=== PATIENT | female | born 1940 | race Caucasian/White ===

== ENCOUNTER 2024-02-03 11:45 | Inpatient (IN) | payer MEDICARE, OTHER, SELFPAY ==
[2024-02-01] VITALS (7 sets, daily range): BP systolic 111–148; BP diastolic 56–99
[2024-02-01 21:42] LABS: % Basophils 0.6 % (0-2); % Eosinophils 1.9 % (0-6); % Immature Granulocytes 0.6 % (0-0.5); % Lymphocytes 33.9 % (20.5-51.1); % Monocytes 7.7 % (1.7-9.3); % Neutrophils 55.3 % (42.2-75.2); Absolute Basophils 0.1 10^3/uL (0-0.2); Absolute Eosinophils 0.2 10^3/uL (0-0.7); Absolute Immature Granulocytes 0.1 10^3/uL (0-0.05); Absolute Lymphocytes 3.7 10^3/uL (1.2-3.4); Absolute Monocytes 0.8 10^3/uL (0.1-0.6); Absolute Neutrophils 5.9 10^3/uL (1.4-6.5); Hematocrit 39.5 % (37.0-47.0); Hemoglobin 13.6 g/dL (12.0-16.0); Mean Corp Hgb Conc. 34.4 g/dL (33.0-37.0); Mean Corpuscular Hgb 30.3 pg (27.0-31.0); Mean Platelet Volume 9.7 fL (7.4-10.4); Nucleated Red Blood Cells % 0 %; Platelet Count 292 10^3/uL (130-400); Red Blood Cell Count 4.49 10^6/uL (4.20-5.40); Red Cell Dist. Width 13.9 % (11.5-14.5); White Blood Cell Count 10.8 10^3/uL (4.8-10.8)
--- NOTE | 2024-02-01 21:59 | ED.GENMED ---
History of Present Illness
<LO Cevallos - Last Filed: 02/02/24 02:05>
General
Chief Complaint: Heart Rate Problem
Source: patient and family (Son, daughter in law)
Exam Limitations: none
Time Seen by Provider: 02/01/24 21:57
Nursing documentation reviewed up to this point in time: agreed with except (ASA allergy)
History of Present Illness
History of Present Illness:
Pt is an 84 y/o F with a pmhx of controlled HTN and HLD x50 years who presents today with complaints of abdominal burning that radiated into her chest x2 hrs. The patient stated that at 8:30pm today she got up to go to the bathroom when she started
to feel that burning in her abdomen and chest tightness. She had associated palpitations, fatigue, weakness, and dizziness. The patient reports a history if FERREIRA all of the time but denied an increase in SOB at the time. The patient reported that she
called her son and daughter in law who transported her to the ED and continued to have complaints of chest tightness for 10 minutes. Upon interview, the patient reported that her chest tightness and abdominal burning have improved. She has continued
complaints of palpitations and new onset headache.
The patient has a pmhx of HTN and HLD x40-50 years which are controlled on medication. She is unable to recall the names of her medication but she sees her PCP on a regular basis for management. The patient also has a pmhx of lung cancer and has
been in remission since 1996. The patient denies history of CHF, stroke/TIA, PVD, and DM. The patient's chart mentions an allergy of aspirin. The patient noted GERD like symptoms when she takes uncoated ASA on an empty stomach. Otherwise, the
patient takes ASA 80mg every night. The patient stated that she does not miss a dose and her last dose was last night. She also has an allergy to an ingredient in cough syrup but is unable to recall the specific ingredient. The patient is a former
smoker since 1986 and is an occasional drinker.
Past History
<LO Cevallos - Last Filed: 02/02/24 02:05>
Past History
ED Past Medical History: HTN, Hypercholesterolemia and Other (Lung cancer)
ED Past Surgical History: Gynecological (Hysterectomy)
Social History
Tobacco: Former smoker (Quit in 1986)
Alcohol: Occasional
Drug: None
Review of Systems
<LO Cevallos - Last Filed: 02/02/24 02:05>
Review of Systems
Allergies reviewed?: Yes
Constitutional: Reports fatigue
EENT: Reports no symptoms
Respiratory: Reports no symptoms
Cardiac: Reports chest pain and palpitations
ABD/GI: Reports no symptoms
: Reports no symptoms
Musculoskeletal: Reports no symptoms
Skin: Reports no symptoms
Neurological: Reports headache and weakness
Endocrine: Reports no symptoms
Hematologic/Lymphatic: Reports no symptoms
Psychiatric: Reports no symptoms
Phy Exam
<LO Cevallos - Last Filed: 02/02/24 02:05>
General Physical Exam
General Presentation: well appearing and mild distress
General age: appears stated age
General Skin: warm and dry
General Habitus: normal
General Mental: alert
General Hydration: appears well hydrated
ENT Exam
ENT Exam: neck supple
Cardiovascular Exam
Cardiovascular Exam: normal peripheral pulses, irregularly irregular, no carotid bruit and tachycardia
Pulmonary Exam
Pulmonary Exam: no respiratory distress
Gastrointestinal Exam
Gastrointestinal Exam: normal bowel sounds, non tender, soft, no pulsatile mass, non distended and no bruit
Neurological Exam
Neurological Exam: alert, oriented x3, no motor deficits, no sensory deficits and speech normal
Scores
<LO Cevallos - Last Filed: 02/02/24 02:05>
[id number] Score for Afib Stroke Risk
Age in Years (65=0, 65-74=1, >/=75=2): > or = 75
Sex (Female=+1): Female
Congestive Heart Failure History (Yes=+1): No
Hypertension History (Yes=+1): Yes
Stroke/TIA/Thromboembolism History (Yes=+2): No
Vascular Disease History (Yes=+1): No
Diabetes Mellitus (Yes=+1): No
Score: 4
Anticoagulation Recommendations: Recommend anticoagulation (as validated in nonvalvular fib)
<Yuri Hugo DO - Last Filed: 02/02/24 03:47>
[id number] Score for Afib Stroke Risk
Score: 4
Anticoagulation Recommendations: Recommend anticoagulation (as validated in nonvalvular fib)
Course
<ST BanPA - Last Filed: 02/02/24 02:05>
Orders/Labs/Results
Orders:
Orders
02/01/24 21:08
Electrocardiogram (*1) Urgent
Reason for Study: Tachycardia
EKG- Treatment ONCE
02/01/24 21:37
Basic Metabolic Panel Urgent
Complete Blood Count/With Diff Urgent
02/01/24 22:33
Prothrombin Time Urgent
Troponin I Urgent
02/01/24 22:48
Diltiazem HCl [Cardizem] 20 mg IV NOW STA
02/01/24 22:59
0.9% Sodium Chloride 500 ml [Nss] 500 ml IV BOLUS
02/01/24 23:00
0.9% Sodium Chloride 500 ml [Nss] 500 ml IV 250 mls/hr
Diltiazem 125 mg/125 ml Nss [Cardizem] 125 mg in 125 ml IV PER PROTOCOL
Initial dose in mg/hr, then titrate:: 5
Titrate to keep:: Heart rate 80-100 bpm
Titrate by mg/hr:: 5 mg/hr
Frequency of titrations (minutes):: 15
Maximum dose in mg/hr:: 15
02/02/24 02:00
Propofol [Diprivan] 20 ml .ROUTE .STK-MED
02/02/24 02:06
Troponin I Urgent
02/02/24 02:35
Electrocardiogram (*1) Urgent
Reason for Study: Palpitations
EKG- Treatment ONCE
02/02/24 02:36
Apixaban [Eliquis] 5 mg PO NOW STA
Abnormal Lab Results
02/01/24 02/01/24 02/02/24
21:37 22:33 02:06
Abs Immat Gran (auto) 0.1 H 10^3/uL
(0-0.05)
Absolute Lymphs (auto) 3.7 H 10^3/uL
(1.2-3.4)
Absolute Monos (auto) 0.8 H 10^3/uL
(0.1-0.6)
Immature Gran % 0.6 H %
(0-0.5)
Carbon Dioxide 20 L mmol/L
(22-30)
BUN 21 H mg/dl
(7-17)
Glucose 153 H mg/dl
(70-99)
Troponin I 0.057 H* ng/ml 0.062 H* ng/ml
02/01/24 21:37
02/01/24 21:37
Vital Signs
Initial and Last Documented VS:
Initial Vital Signs
Temp Pulse Resp BP Pulse Ox
97.7 F 146 18 148/95 98
02/01/24 21:04 02/01/24 21:04 02/01/24 21:04 02/01/24 21:04 02/01/24 21:04
Last Documented Vital Signs
Temp Pulse Resp BP Pulse Ox
97.7 F 55 18 125/66 97
02/01/24 21:04 02/02/24 03:15 02/02/24 03:15 02/02/24 03:15 02/02/24 03:15
<Yuri Hugo, DO - Last Filed: 02/02/24 03:47>
Orders/Labs/Results
Orders:
Orders
02/01/24 21:08
Electrocardiogram (*1) Urgent
Reason for Study: Tachycardia
EKG- Treatment ONCE
02/01/24 21:37
Basic Metabolic Panel Urgent
Complete Blood Count/With Diff Urgent
02/01/24 22:33
Prothrombin Time Urgent
Troponin I Urgent
02/01/24 22:48
Diltiazem HCl [Cardizem] 20 mg IV NOW STA
02/01/24 22:59
0.9% Sodium Chloride 500 ml [Nss] 500 ml IV BOLUS
02/01/24 23:00
0.9% Sodium Chloride 500 ml [Nss] 500 ml IV 250 mls/hr
Diltiazem 125 mg/125 ml Nss [Cardizem] 125 mg in 125 ml IV PER PROTOCOL
Initial dose in mg/hr, then titrate:: 5
Titrate to keep:: Heart rate 80-100 bpm
Titrate by mg/hr:: 5 mg/hr
Frequency of titrations (minutes):: 15
Maximum dose in mg/hr:: 15
02/02/24 02:00
Propofol [Diprivan] 20 ml .ROUTE .STK-MED
02/02/24 02:06
Troponin I Urgent
02/02/24 02:35
Electrocardiogram (*1) Urgent
Reason for Study: Palpitations
EKG- Treatment ONCE
02/02/24 02:36
Apixaban [Eliquis] 5 mg PO NOW STA
Abnormal Lab Results
02/01/24 02/01/24 02/02/24
21:37 22:33 02:06
Abs Immat Gran (auto) 0.1 H 10^3/uL
(0-0.05)
Absolute Lymphs (auto) 3.7 H 10^3/uL
(1.2-3.4)
Absolute Monos (auto) 0.8 H 10^3/uL
(0.1-0.6)
Immature Gran % 0.6 H %
(0-0.5)
Carbon Dioxide 20 L mmol/L
(22-30)
BUN 21 H mg/dl
(7-17)
Glucose 153 H mg/dl
(70-99)
Troponin I 0.057 H* ng/ml 0.062 H* ng/ml
02/01/24 21:37
02/01/24 21:37
Vital Signs
Initial and Last Documented VS:
Initial Vital Signs
Temp Pulse Resp BP Pulse Ox
97.7 F 146 18 148/95 98
02/01/24 21:04 02/01/24 21:04 02/01/24 21:04 02/01/24 21:04 02/01/24 21:04
Last Documented Vital Signs
Temp Pulse Resp BP Pulse Ox
97.7 F 55 18 125/66 97
02/01/24 21:04 02/02/24 03:15 02/02/24 03:15 02/02/24 03:15 02/02/24 03:15
Procedures
<Yuri Hugo, DO - Last Filed: 02/02/24 03:47>
Cardioversion
Indication:: Afib
Performed by:: Myself
Synchronized?: Yes
Energy Used: 200 joules
Number of attempts: 1
Successful?: Yes
ASA Risk Score: Class II
Any reaction or bad outcome to prior sedation/anesthesia?: No history of a reaction
Sedation level to be attained: moderate
Chart and allergies reviewed: Yes
Patient reassessed prior to sedation: Yes
Time out completed at (validating right patient & procedure): 02:24
History of difficult intubation: No
Airway free of obstruction: Yes
Patient has a gag reflex: Yes
Patient is able to open mouth: Yes
Patient has no dentures: Yes
Patient has no loose teeth: Yes
Medication administered by Provider during Moderate Sedation: IV Propofol (mg)
Total dose administered: 50
Time drug administered: 02:25
Start Time: 02:24
Stop Time: 02:40
<LO Cevallos - Last Filed: 02/02/24 02:05>
MDM/Problems Addressed
Differential Diagnosis Includes:
Afib
<LO Cevallos - Last Filed: 02/02/24 02:05>
*Critical Care Note
Total Time (30-74mins, 75-104mins- exclusive of procedures): Not Applicable
<LO Cevallos - Last Filed: 02/02/24 02:05>
Update Note
Update Note:
23:45 Pt was given IVF and Cardizem 20 mg bolus IV. The patient stated that she has been feeling better since presentation to the ED and is calmer. She reported that her abdominal burning and chest tightness has resolved. The HR monitor still
indicates Afib and the patient is still tachycardic but her HR has improved overall.
00:35 Pt is still doing well. HR is under 100 bpm but the monitor still indicates afib.
02:00 Pt is still in afib despite attempting rate control with Cardizem. She is agreeable to synchronized cardioversion.
ED Attending Note
<LO Cevallos - Last Filed: 02/02/24 02:05>
-
Portions of this chart may have been created with voice recognition software.� Occasional wrong word or��sound alike� substitutions may have occurred due to the inherent limitations of voice recognition software.
<Yuri Hugo, DO - Last Filed: 02/02/24 03:47>
ED Attending Note
Patient seen and examined by attending physician: Yes
I performed the substantive portion of visit, reviewed & personally made and approve the management plan that is documented in note by myself or SELAM.: Yes
ED Attending Note:
84-year-old female presents with palpitations. She states approximately 8:30 PM she had some abdominal bloating and palpitations. Patient states that she does have dyspnea on exertion but states that that has been stable and not increased today.
Patient reports that she had a similar instance of palpitation in the past that was self-limited. Patient denies fever, chills, nausea or vomiting. Patient was seen in conjunction with the PA student. I have reviewed and agree with the history
and treatment plan presented. On my independent physical exam, patient is awake, alert, and oriented x3. Heart is irregularly irregular. On the monitor heart rate appears to be normalizing.
Vital signs are stable. Patient not hypoxic
Nursing note reviewed. I agree with nursing documentation up to this point in time.
Home Meds and allergies reviewed.
NUMBER AND COMPLEXITY OF PROBLEMS ADDRESSED AT THE ENCOUNTER
� Chronic conditions affecting care:HTN, HLD
� Acute Exacerbation and/or Progression of Chronic Illness:None
� Differential Diagnosis includes:Afib, Aflutter
AMOUNT AND/OR COMPLEXITY OF DATA TO BE REVIEWED AND ANALYZED
I performed an independent evaluation of the following and my interpretation is:
EKG: EKG shows atrial fibrillation with rapid ventricular response rate of 139. There is a right bundle branch block present.
CT:
X-rays:
Ultrasound:
Laboratory Studies: Troponin 0.057.
Other:
Review of other/old records:
Clinical information was obtained by an independent historian:
Prescriptions/Medications Considered but not given:
Further testing considered but not performed:
RISK OF COMPLICATIONS AND/OR MORBIDITY OR MORTALITY OF PATIENT MANAGEMENT
Social determinants of health affecting care: Good Social Support
Discussion with other providers:
Escalation of care including admission/observation vs risk of discharge considered:
CRITICAL CARE NOTE:
Total Time (exclusive of procedures):
Update:02/02/2024 0157 AM: Patient still in atrial fibrillation with rapid ventricular response. She did agree for synchronized cardioversion with propofol sedation. Consent signed by patient and son. She has no further questions.
Discharge Plan
Departure
Patient Disposition: Admit
Date of Disposition: 02/02/24
Time of Disposition: 03:46
Admit to: Telemetry
Presentation/result/management discussed w/ accepting MD/DO: Hospitalist
Condition: Fair
Discharge Problem:
Atrial fibrillation with controlled ventricular response
Instructions: Atrial Fibrillation (DC), Palpitations (DC)
Prescriptions:
New
Eliquis 5 mg tablet
5 mg PO BID Qty: 30 0RF
No Action
losartan 50 mg Tablet
50 mg PO DAILY
atorvastatin 80 mg Tablet
80 mg PO HS
cyanocobalamin (vitamin B-12) 1,000 mcg Tablet
1,000 mcg PO DAILY
potassium chloride 10 mEq Tablet Extended Release
10 meq PO BID
acetaminophen [Tylenol Extra Strength] 500 mg Tablet
500 mg PO Q6HPRN PRN (Reason: mild pain)
amlodipine 10 mg Tablet
10 mg PO DAILY
hydrochlorothiazide 12.5 mg Capsule
12.5 mg PO DAILY
aspirin 81 mg Tablet,Chewable
81 mg PO HS
Hair,Skin and Nails Tablet
1 tab PO DAILY
fluoxetine 20 mg Capsule
20 mg PO DAILY
biotin 5 mg Tablet
5 mg PO DAILY
Centrum Silver Women 8 mg iron-400 mcg-50 mcg Tablet
1 tab PO DAILY
Referrals:
Gisela Mcfadden MD [Family Provider] -
Interventions
Interventions:
*Risk Screen - Suicide Last Done: 02/01/24 21:04
*General Assessment Last Done: 02/01/24 21:04
*Neglect/Abuse Screening Last Done: 02/01/24 21:04
ED- Cardiac Assessment Last Done: 02/01/24 21:39
ED- Pulmonary Assessment Last Done: 02/01/24 21:39
Discharge Date and Time
Print Language: KYRGYZ
[2024-02-01 22:03] LABS: Blood Urea Nitrogen 21 mg/dl (7-17); Calcium 9.7 mg/dl (8.4-10.2); Carbon Dioxide 20 mmol/L (22-30); Chloride 102 mmol/L (98-107); Glucose 153 mg/dl (70-99); Sodium 141 mmol/L (135-145); eGFR > 60.00
[2024-02-01 22:49] LABS: INR 1.09; PT 14.2 Sec (11.4-14.6)
[2024-02-01] MEDS: NSS 500 IV ×2 (23:00→23:17)
[2024-02-01 23:06] LABS: Troponin I 0.057 ng/ml
[2024-02-01] MEDS: CARDIZEM 20 MG IV (23:25)
[2024-02-01] MEDS: CARDIZEM 125 IV (23:45)
[2024-02-02] VITALS (77 sets, daily range): BP systolic 86–173; BP diastolic 55–103; BMI 28.4
[2024-02-02] MEDS: ELIQUIS 5 MG PO ×2 (03:11→19:38)
[2024-02-02 03:36] LABS: Troponin I 0.062 ng/ml
[2024-02-02] MEDS: NSS IV ×4 (04:34→07:11)
--- NOTE | 2024-02-02 04:53 | HPS.HSE ---
Family Physician
-
Family Physician: Gisela Mcfadden MD
Chief Complaint
-
Chest pain palpitations
History of Present Illness
This is a 84-year-old female with past medical history of cancer status post left lower lobectomy, hypertension, hyperlipidemia presenting to the onset with associated chest pain.
He reported onset of fluttering discomfort reported pain radiating to the substernal region associated with pressure and shortness of breath. No she reported having palpitations. Her heart rate and that it was fast and she could not feel a pulse.
She called family members who arranged to present to the emergency department to set up her symptoms. She denies feeling dizzy or lightheaded.
Also history of persistent. She has been never diagnosed with supraventricular tachycardia history exertion. She reported that exertion she denies exertional chest pain. She denies PND or lower extremity edema. Patient was arranged to have a
stress test in the past but could not tolerate the procedure. No personal history of CAD.
In ED she was tachycardic to 140s and in AFIB. TWI in latereal leads. Due to chest discomfort, patient underwent cardioversion successfully and was in sinus at 50 - 60 following procedure. Initial troponin before cardioversion was elevated at
0.037 with a repeat trop at 0.062 prior to cardioversion. She is currently chest pain free. CBC was normal with Hgb of 13.6. Chemistries unremarkable with K hemolyzed and repeat pending.
Medical History
Past Medical History
Past Medical History: Reports HTN and Hypercholesterolemia
Additional Past Medical History:
Lung Ca s/p lobectomy
Past Surgical History: Reports Other (Left Lung Lobectomy)
Additional Past Surgical History:
Left Lower Lobectomy
Social History
Tobacco: Non-smoker
Alcohol: None
Drug: None
Personal:
Living: Alone
Employment: Retired
Family History
Family History: Not pertinent
Allergies / Home Medications
Allergies reflects when Allergies were last updated in [employer].
Home Medications with original date entered in [employer]
Allergy/Medication List:
Allergies
Allergy/AdvReac Type Severity Reaction Status Date / Time
aspirin Allergy Unknown Verified 02/01/24 21:04
.cough syrup Allergy Unknown Uncoded 02/01/24 21:04
Home Medications
acetaminophen 500 mg tablet (Tylenol Extra Strength) 500 mg PO Q6HPRN PRN mild pain 02/01/24
amlodipine 10 mg tablet 10 mg PO DAILY 02/01/24
aspirin 81 mg chewable tablet 81 mg PO HS 02/01/24
atorvastatin 80 mg tablet 80 mg PO HS 02/01/24
biotin 5 mg tablet 5 mg PO DAILY 02/01/24
cyanocobalamin (vitamin B-12) 1,000 mcg tablet 1,000 mcg PO DAILY 02/01/24
fluoxetine 20 mg capsule 20 mg PO DAILY 02/01/24
hydrochlorothiazide 12.5 mg capsule 12.5 mg PO DAILY 02/01/24
losartan 50 mg tablet 50 mg PO DAILY 02/01/24
jygwocer-wiau-fulx 8 mg-folic 400 mcg-K 50 mcg-lutein 300 mcg tablet (Centrum Silver Women) 1 tab PO DAILY 02/01/24
multivitamin with minerals (Hair,Skin and Nails tablet) 1 tab PO DAILY 02/01/24
potassium chloride 10 mEq tablet,extended release 10 meq PO BID 02/01/24
apixaban 5 mg tablet (Eliquis) 5 mg PO BID #30 tabs 02/02/24
Review of Systems
-
History Source: Patient and Family
Constitutional: Reports No Symptoms
EENT: Reports No Symptoms
Respiratory: Reports Trouble Breathing
Cardiac: Reports Chest Pain and Palpitations
Abdomen/GI: Reports Nausea
: Reports No Symptoms
Musculoskeletal: Reports No Symptoms
Skin: Reports No Symptoms
Neurological: Reports No Symptoms
Endocrine: Reports No Symptoms
Hematologic/Lymphatic: Reports No Symptoms
Psych: Reports No Symptoms
Physical Exam
Vital Signs
Vital Signs
Temp Pulse Resp BP Pulse Ox
97.7 F 55 12 120/76 98
02/01/24 21:04 02/02/24 04:21 02/02/24 04:21 02/02/24 04:21 02/02/24 04:21
Physical Exam
General: Well Developed, Well Nourished, No Apparent Distress and Comfortable
HEENT: NormoCephalic, Anicteric, Moist mucous membranes and Atraumatic
Respiratory: Clear
Cardiac: S1/S2, Regular Rhythm and Bradycardia
Breast: Deferred by me
GI: Soft, Non Tender, Non Distended and Normal Bowel Sounds
Rectal: Deferred by Provider
Genito-urinary: Deferred by me
Musculoskeletal: No Clubbing, No Cyanosis and No Edema
Skin: Warm
Neuro: AO x 3
Hematologic/Lymphatic: No Lymphadenopathy
Psych: Calm
Laboratory Results
-
02/01/24 21:37
02/01/24 21:37
Laboratory Results
PT 14.2 Sec (11.4-14.6) 02/01/24 22:33
INR 1.09 02/01/24 22:33
Total Bilirubin Cancelled 02/01/24 21:37
AST Cancelled 02/01/24 21:37
ALT Cancelled 02/01/24 21:37
Alkaline Phosphatase Cancelled 02/01/24 21:37
Troponin I 0.062 ng/ml H* 02/02/24 02:06
Data Reviewed
-
Medical Tests (Nuc Med, Echo, EKG etc): Image Personally Visualized and interpreted
Lab Data: Labs Reviewed by me
Old Records: Reviewed
Impression/Plan
-
IMPRESSION:
Patient with acute onset AFIB RVR associated with chest pain and troponin elevation.
PLAN:
1. AFIB RVR - AFIB RVR complicated by chest pain. S/P cardioversion with conversion to sinus rhythm. Ad
- admit to telemetry
- on diltiazem gtt for now pending echo
- echo, bnp, tsh
- f/u repeat K and mag for goal > 4,2 respectively
- eliquis initiated
2. NSTEMI - Type II [place] with demand ischemia. Trop 0.03 - > 0.06. There was rate related t wave changes. Currently chest pain free. Was on aspirin at home. H/o dyspnea on exertion without prior w/u.
- trend troponin
- aspirin 81 taken earlier (hold further aspirin)
- continue statin
- echo for any wall motion anomalies
- cardiology consult as patient may need further ischemic testing.
3. HTN
- continue losartan
- hold amlodipine while on dilt
- continue low dose hctz
DVT PPX - on apixaban
Code Status - Full code
[2024-02-02 07:39] LABS: Troponin I 0.076 ng/ml
--- NOTE | 2024-02-02 08:28 | CON.CAR ---
Addendum entered and electronically signed by Sotero Carson MD 02/02/24 12:33:
I saw and examined the patient.
The Reinsurance Claims Analyst's note was reviewed and I agree with the note.
Comment:
GEN: No distress, awake, Ox3
HEENT: supple, anicteric, mmm
LUNGS: CTA, no wheezes/rales
CV: Reg, S1/S2, 2/6 syst LSB, no gallop
ABD: soft, BS+, NT/ND
EXT: No edema
NEURO: Gross non-focal
SKIN: No rash
plan:
She presents with new onset atrial fibrillation, chest pain and palpitations. She has a past medical history of hypertension, hyperlipidemia and lung cancer status post lobectomy. She was cardioverted in the emergency and restored sinus rhythm.
Cardiac troponins are borderline abnormal at 0.5-0.07.
Agree with starting Eliquis 5 mg p.o. twice daily. Check echocardiogram to evaluate LVEF and valves. OK to stop ASA
Would start Toprol 25 mg daily. Continue amlodipine and losartan.
Would ambulate today and if feels stable with stable troponins okay for discharge with outpatient cardiology follow-up and outpatient stress test.
Original Note:
Consultation
Consultation Request
Date/Time Consultation Requested: 02/02/2024
Date/Time Consultation Performed: 02/02/2024
Requesting Provider: Dr. Valdivia
Performing Provider: Albertina Bourgeois PA-C for Dr. Carson
Reason for Consultation: Atrial fibrillation with rapid ventricular response
Medical History
-
History of Present Illness:
Patient is an 84-year-old female with past medical history significant for hypertension, hyperlipidemia, lung cancer status post left left lower lobe lobectomy who presented to emergency department 02/01/2024 with acute onset chest discomfort
associated with shortness of breath and palpitations. In emergency department she was noted to be in atrial fibrillation with rapid ventricular response. Patient was provided IV diltiazem bolus followed by drip without scientology of sinus rhythm.
Due to ongoing chest pain she underwent urgent cardioversion in ED with scientology of sinus rhythm/sinus bradycardia. Initial troponin 0.057 pre cardioversion. Troponin continuing to slowly trend upward with repeat 0.076. Chest pain improved
post cardioversion.
Patient fairly new to the area previously lived in [place]. Has relocated to [place]. No prior history of any cardiac conditions or ever seeing pre sales technical engineer. She does note in the past occasional episodes of palpitations with feeling her
heart beating fast in her throat. She also has dyspnea with moderate activity but denies chest pain on a normal basis.
Past medical history:
Hypertension
Hyperlipidemia
Lung cancer
Status post left lower lobectomy
Past Medical History
Past Medical History: Other (See HPI)
Past Surgical History: Gynecological (Hysterectomy) and Other (Left lower lobe lobectomy)
Social History
Tobacco: Former Smoker (Quit 1986)
Alcohol: Occasional (A few glasses of wine a month)
Drug: None
Personal:
Living: Alone
Family History
Family History: Other (Mother of heart failure/pulmonary edema)
Allergies / Home Medications
Allergy/AdvReac Type Severity Reaction Status Date / Time
aspirin Allergy Unknown Verified 02/01/24 21:04
.cough syrup Allergy Unknown Uncoded 02/01/24 21:04
�Medication �Instructions �Recorded �Confirmed �Type
acetaminophen 500 mg tablet 500 mg PO Q6HPRN PRN mild pain 02/01/24 02/01/24 History
(Tylenol Extra Strength)
amlodipine 10 mg tablet 10 mg PO DAILY 02/01/24 02/01/24 History
aspirin 81 mg chewable tablet 81 mg PO HS 02/01/24 02/01/24 History
atorvastatin 80 mg tablet 80 mg PO HS 02/01/24 02/01/24 History
biotin 5 mg tablet 5 mg PO DAILY 02/01/24 02/01/24 History
cyanocobalamin (vitamin B-12) 1,000 mcg PO DAILY 02/01/24 02/01/24 History
1,000 mcg tablet
fluoxetine 20 mg capsule 20 mg PO DAILY 02/01/24 02/01/24 History
hydrochlorothiazide 12.5 mg capsule 12.5 mg PO DAILY 02/01/24 02/01/24 History
losartan 50 mg tablet 50 mg PO DAILY 02/01/24 02/01/24 History
pvbmihoc-ivgu-jupl 8 mg-folic 400 1 tab PO DAILY 02/01/24 02/01/24 History
mcg-K 50 mcg-lutein 300 mcg tablet
(Centrum Silver Women)
multivitamin with minerals 1 tab PO DAILY 02/01/24 02/01/24 History
(Hair,Skin and Nails tablet)
potassium chloride 10 mEq 10 meq PO BID 02/01/24 02/01/24 History
tablet,extended release
apixaban 5 mg tablet (Eliquis) 5 mg PO BID #30 tabs 02/02/24 Rx
Review of Systems
-
History Source: Patient
All other systems: Negative unless noted
Physical Exam
Vital Signs
Temp Pulse Resp BP Pulse Ox
97.7 F 65 17 145/72 95
02/01/24 21:04 02/02/24 07:10 02/02/24 07:10 02/02/24 07:10 02/02/24 07:10
Lab Results
02/01/24 21:37
02/01/24 21:37
Troponin I 0.076 ng/ml H* 02/02/24 06:54
Impression / Plan
-
PCP: Gisela Mcfadden
Nursing Care Attendant:
Impression:
Presented 02/01/2024 with chest pain
Atrial fibrillation with rapid ventricular response, new diagnosis
Status post cardioversion 02/01/2024 in emergency department
Abnormal troponin
Hypertension
Hyperlipidemia
Lung cancer
Status post left lower lobectomy
Echo 02/01/2024: pending
Plan:
-Presented 02/01/2024 with chest pain found to be in atrial fibrillation with rapid ventricular response. This appears to be new diagnosis
-Underwent urgent 02/01/2024 in emergency department. Now maintaining sinus rhythm
-Started on Eliquis 5 mg twice a day this admission. Continue anticoagulation. Hemoglobin on admission 13.6. Will have case management to cost analysis for Eliquis. Will provide [employer] co-pay card for free 30 days at discharge
-Stop aspirin
-Check echocardiogram
-Will need AV michael blocking agent. Patient takes amlodipine as outpatient. Would consider transitioning to Cardizem and uptitrating losartan for hypertension if EF preserved. If EF reduced then consider initiation of beta-mati instead.
-Abnormal troponin initial 0.057 (pre cardioversion) slowly trending upward. Now 0.076. Suspect nonischemic myocardial injury secondary to atrial fibrillation with rapid ventricular response and cardioversion.
-Patient and her son do mention she gets short of breath with moderate activity but denies chest pain. Will consider ischemic evaluation with Lexiscan nuclear stress test as outpatient and last EF significantly reduced on echo
-Check TSH with free T4
-Hyperlipidemia continue on atorvastatin
-Hypertension maintained on amlodipine, hydrochlorothiazide, losartan as outpatient
HPI 02/01/2024:
Patient is an 84-year-old female with past medical history significant for hypertension, hyperlipidemia, lung cancer status post left left lower lobe lobectomy who presented to emergency department 02/01/2024 with acute onset chest discomfort
associated with shortness of breath and palpitations. In emergency department she was noted to be in atrial fibrillation with rapid ventricular response. Patient was provided IV diltiazem bolus followed by drip without scientology of sinus rhythm.
Due to ongoing chest pain she underwent urgent cardioversion in ED with scientology of sinus rhythm/sinus bradycardia. Initial troponin 0.057 pre cardioversion. Troponin continuing to slowly trend upward with repeat 0.076. Chest pain improved
post cardioversion.
Patient fairly new to the area previously lived in [place]. Has relocated to [place]. No prior history of any cardiac conditions or ever seeing pre sales technical engineer. She does note in the past occasional episodes of palpitations with feeling her
heart beating fast in her throat. She also has dyspnea with moderate activity but denies chest pain on a normal basis.
Data Reviewed
-
EKG: Report Reviewed by me, Discussed with Patient and Discussed with Family
Labs: Labs Reviewed by me, Discussed with Physician, Discussed with Patient and Discussed with Family
[2024-02-02] MEDS: COZAAR 50 MG PO (09:41)
[2024-02-02] MEDS: ORETIC 12.5 MG PO (09:42)
[2024-02-02] MEDS: FLUSH (NSS) 2 FLUSH IV (09:42)
[2024-02-02] MEDS: PROZAC 20 MG PO (09:42)
[2024-02-02] MEDS: VITAMIN B-12 1000 MCG PO (09:42)
--- NOTE | 2024-02-02 10:38 | PTCARENOTE ---
Received patient from the ED at 0730 with new diagnosis of BIANCA with RVR. Patient presently in SR, IV cardizem discontinued prior to transfer. Patient oriented to the room and plan of care. Nursing admission assessment completed, patient seen by
cardiology and echo completed. Son at the bedside, patient watching AF video, call velazquez in reach.
--- NOTE | 2024-02-02 10:50 | CM ---
CM following for DC planning needs.
Met w/ patient and son, Yuri at bedside.
Pt. has recently moved to the area to live close to son/family from [place].
Pt. resides in a private, 1 level apartment alone. She is functionally indep. w/ ADLs, mobility without the use of any assisted device. She still drives.
Pt. DOES NOT have Rx plan and pays for medications via [employer].
We discussed OBS status; JORGE presented, signed and copy provided.
Pt. would like VN at DC. Would prefer [facility]. Will make referral.
Plan is for home w/ [facility], if accepted.
CM to follow.
--- NOTE | 2024-02-02 10:53 | CM ---
Jaison Borrego thru local pharmacy.
Pt. has no Rx coverage; she uses [facility].
I have confirmed this w/ patient and son. Son will assist with enrolling in Rx plan during open enrollment period.
Will provide a free 30 d coupon.
Pt. will follow up with Housing Inspector. Family is OK paying privately if samples are unavailable.
Spoke w/ JONATHAN, who is aware.
[2024-02-02 12:14] LABS: Blood Urea Nitrogen 14 mg/dl (7-17); Calcium 9.7 mg/dl (8.4-10.2); Carbon Dioxide 25 mmol/L (22-30); Chloride 104 mmol/L (98-107); Estimated Creatinine Clearance 68 ml/min; Glucose 154 mg/dl (70-99); Potassium 4.3 mmol/L (3.5-5.1); Sodium 139 mmol/L (135-145); eGFR > 60.00
[2024-02-02 12:19] LABS: TSH 2.57 uIU/ml (0.47-4.68)
--- NOTE | 2024-02-02 13:40 | W.PN.UPDATE ---
Update Note
Progress Note Update
Non-billable addendum - admitted 5 AM
Admitted with rapid Afib and troponin leak
placed on Cardizem drip, now off Cardizem drip and in NSR
Cards recommends Eliquis, Toprol XL
Assessment:
Parox A. Fib with RVR
- TSH normal
- s/p Cardizem drip - converted to NSR
- start Eliquis 5mg BID; supply coupon and samples
- start Toprol XL 25mg daily
- check Echo
- DCA cards following
Chest pain
nonischemic myocardial injury secondary to atrial fibrillation with rapid ventricular response
- trop peaked at .076
- outpatient ischemic evaluations planned
- continue Statin/Eliquis
- check Echo
Essential HTN
- start Toprol XL 25mg daily
- continue prior HCTZ but may stop if low BPs
- continue prior Losartan/Amlodipine
HLD - statin
DVT ppx: Eliquis
Code: Full
[2024-02-02] MEDS: TOPROL XL 25 MG PO (15:03)
--- NOTE | 2024-02-02 15:30 | PTCARENOTE ---
Patient remains in SR, feels much better, was able to sleep this afternoon for a few hours. Son in visiting, patient ambulating in the room without difficulty.
[2024-02-02] MEDS: LIPITOR 80 MG PO (22:10)
--- NOTE | 2024-02-03 00:21 | PTCARENOTE ---
Pt. remains in NSR 50's-60's so far this shift, no complaints of any pain discomfort, VSS. Ambulatory and independent. Currently sleeping.
[2024-02-03 03:30] VITALS: BP 128/83
[2024-02-03 04:10] LABS: Hematocrit 37.7 % (37.0-47.0); Hemoglobin 13.2 g/dL (12.0-16.0); Mean Corpuscular Hgb 31.1 pg (27.0-31.0); Mean Corpuscular Volume 88.7 fL (81.0-99.0); Mean Platelet Volume 9.9 fL (7.4-10.4); Platelet Count 237 10^3/uL (130-400); Red Blood Cell Count 4.25 10^6/uL (4.20-5.40); Red Cell Dist. Width 13.8 % (11.5-14.5); White Blood Cell Count 7.1 10^3/uL (4.8-10.8)
[2024-02-03 04:32] LABS: Blood Urea Nitrogen 14 mg/dl (7-17); Carbon Dioxide 28 mmol/L (22-30); Chloride 103 mmol/L (98-107); Estimated Creatinine Clearance 68 ml/min; Glucose 101 mg/dl (70-99); HDL Cholesterol 52 mg/dl; LDL Cholesterol, Calculated 118 mg/dl; Magnesium 1.8 mg/dl (1.6-2.3); Potassium 4.2 mmol/L (3.5-5.1); Sodium 142 mmol/L (135-145); Total Cholesterol 208 mg/dl (50-199); Triglyceride 194 mg/dl (10-149); Very Low Density Lipoprotein 38 mg/dl (0-30); eGFR > 60.00
[2024-02-03 06:52] VITALS: BP 142/69
[2024-02-03 06:56] VITALS: BMI 27.9
--- NOTE | 2024-02-03 08:06 | W.PN.CARDCBS ---
Addendum entered and electronically signed by Khris Dominguez DO 02/03/24 10:31:
I saw and examined the patient.
The Lost Charge Card Clerk's note was reviewed and I agree with the note.
Comment:
Plan:
Remains in sinus
New to Eliquis and Toprol
Outpt Lexiscan MIBI to eval for ischemia
Outpt follow up arranged
Discussed with son at bedside.
Original Note:
Today's Communication / Plan
-
Maintaining sinus rhythm
New to Eliquis 5 mg and Toprol 25 mg this admission
Patient overall stable
Outpatient cardiology follow-up has been arranged and stable from cardiac standpoint for discharge
Impression / Plan
-
PCP: Gisela Mcfadden
Cytologist:
Impression:
Presented 02/01/2024 with chest pain
Atrial fibrillation with rapid ventricular response, new diagnosis
Status post cardioversion 02/01/2024 in emergency department
Abnormal troponin
Hypertension
Hyperlipidemia
Lung cancer
Status post left lower lobectomy
Echo 02/01/2024: EF 65%-70%, mild cLVH. Moderate MR, mild TR. Aortic sclerosis but no stenosis
Plan:
-Presented 02/01/2024 with chest pain found to be in atrial fibrillation with rapid ventricular response. This appears to be new diagnosis
-Underwent urgent 02/01/2024 in emergency department. Now maintaining sinus rhythm
-Started on Eliquis 5 mg twice a day this admission. Continue anticoagulation. Hemoglobin on admission 13.2. No prescription coverage but willing to pay per son. Will provide copay card for free 30 days
-Echocardiogram as noted above preserved EF, mod MR
-New to Toprol 25 mg
-Abnormal troponin initial 0.057 (pre cardioversion) slowly trending upward. Peak 0.076. Suspect nonischemic myocardial injury secondary to atrial fibrillation with rapid ventricular response and cardioversion.
-Will need ischemic evaluation with Lexiscan nuclear stress test as outpatient
-TSH normal 2.57
-Hyperlipidemia continue on atorvastatin
-Hypertension maintained on amlodipine, hydrochlorothiazide, losartan as outpatient. Now new to low dose Toprol and BP stable
-Outpatient cardiology follow-up has been arranged. Stable from cardiac standpoint for discharge
Reviewed above findings and plan with patient, patient's son, nursing and discussed with hospitalist
[facility] 02/01/2024:
Patient is an 84-year-old female with past medical history significant for hypertension, hyperlipidemia, lung cancer status post left left lower lobe lobectomy who presented to emergency department 02/01/2024 with acute onset chest discomfort
associated with shortness of breath and palpitations. In emergency department she was noted to be in atrial fibrillation with rapid ventricular response. Patient was provided IV diltiazem bolus followed by drip without jain of sinus rhythm.
Due to ongoing chest pain she underwent urgent cardioversion in ED with jain of sinus rhythm/sinus bradycardia. Initial troponin 0.057 pre cardioversion. Troponin continuing to slowly trend upward with repeat 0.076. Chest pain improved
post cardioversion.
Patient fairly new to the area previously lived in [place]. Has relocated to [place]. No prior history of any cardiac conditions or ever seeing engineering surveyor. She does note in the past occasional episodes of palpitations with feeling her
heart beating fast in her throat. She also has dyspnea with moderate activity but denies chest pain on a normal basis.
Progress Note - Cytologist
Subjective
Date of Service: February 03, 2024
Patient seen and examined. Patient son at bedside. Patient reports she is feeling great. She was able to walk around the unit yesterday without any cardiac complaints or symptoms.
Objective
Labs:
02/03/24 03:48
02/03/24 03:44
Labs
Hgb 13.2 g/dL (12.0-16.0) 02/03/24 03:48
Hct 37.7 % (37.0-47.0) 02/03/24 03:48
Plt Count 237 10^3/uL (130-400) 02/03/24 03:48
PT 14.2 Sec (11.4-14.6) 02/01/24 22:33
INR 1.09 02/01/24 22:33
Sodium 142 mmol/L (135-145) 02/03/24 03:44
Potassium 4.2 mmol/L (3.5-5.1) 02/03/24 03:44
BUN 14 mg/dl (7-17) 02/03/24 03:44
Creatinine 0.5 mg/dL (0.6-1.0) L 02/03/24 03:44
Glucose 101 mg/dl (70-99) H 02/03/24 03:44
Troponins
02/01/24 02/01/24 02/02/24
21:37 22:33 02:06
Troponin I Cancelled 0.057 H* 0.062 H*
02/02/24 02/02/24
06:54 11:03
Troponin I 0.076 H* 0.060 H*
Vital Signs and I&O:
Vital Signs
Temp Pulse Resp BP Pulse Ox
98.0 F 58 16 128/83 96
02/03/24 06:51 02/03/24 03:30 02/03/24 06:51 02/03/24 03:30 02/03/24 06:51
Vital Signs
Temp Pulse Resp BP Pulse Ox
98.0 F 58 16 128/83 96
02/03/24 06:51 02/03/24 03:30 02/03/24 06:51 02/03/24 03:30 02/03/24 06:51
Intake & Output
02/01/24 02/02/24 02/03/24 02/04/24
06:59 06:59 06:59 06:59
Intake Total 960 / 960
Balance 960 / 960
Physical Exam
Physical Exam
GEN: No distress, awake, Ox3, sitting up on edge of bed
HEENT: supple, anicteric, mmm
LUNGS: CTA, no wheezes/rales
CV: Reg, S1/S2, 2/6 syst LSB, no gallop or rub
ABD: soft, BS+, NT/ND
EXT: No edema, clubbing or cyanosis
NEURO: Gross non-focal
SKIN: No rash
[2024-02-03] MEDS: COZAAR 50 MG PO (08:25)
[2024-02-03] MEDS: ORETIC 12.5 MG PO (08:25)
[2024-02-03] MEDS: NORVASC 10 MG PO (08:25)
[2024-02-03] MEDS: ELIQUIS 5 MG PO (08:26)
[2024-02-03] MEDS: PROZAC 20 MG PO (08:26)
[2024-02-03] MEDS: TOPROL XL 25 MG PO (08:26)
[2024-02-03] MEDS: VITAMIN B-12 1000 MCG PO (08:26)
--- NOTE | 2024-02-03 08:31 | PTCARENOTE ---
Rec'd Pt at change of shift this am, A,A+O x3, very pleasant, offers no complaints. She remains in SB-SR on phototypesetting equipment monitor. She is currently OOb in chair. Her son is here this morning.
[2024-02-03 09:57] LABS: Glycohemoglobin (HgbA1c) 5.8 % (4.0-5.6)
--- NOTE | 2024-02-03 11:34 | W.PN.HOSP.TC ---
Today's Communication/Plan
-
dc to home/VN
Assessment / Plan
Assessment / Plan
Assessment:
Parox A. Fib with RVR
- TSH normal
- s/p Cardizem drip - converted to NSR
- continue Eliquis 5mg BID; supply coupon and samples
- continue Toprol XL 25mg daily
- Echo: Normal left ventricular size and systolic function. No regional wall motion abnormalities are seen. LV ejection fraction is 65-70% by Felix's method of discs. Mild concentric left ventricular hypertrophy. Normal right ventricular size.
Normal right ventricular systolic function.
Moderate mitral regurgitation. Aortic sclerosis without stenosis. Mild tricuspid regurgitation. Estimated pulmonary artery pressure of 40-45 mmHg.
- DCA cards follow up outpatient
Chest pain
nonischemic myocardial injury secondary to atrial fibrillation with rapid ventricular response
- trop peaked at .076
- outpatient ischemic evaluations planned
- continue Statin/Eliquis
- Echo as above
Essential HTN
- continue Toprol XL 25mg daily
- continue prior HCTZ
- continue prior Losartan/Amlodipine
HLD - statin
DVT ppx: Eliquis
Code: Full
More than 30 minutes spent in discharge including
Final examination of the patient
Summarizing hospital stay
Instructions for continuing care to all relevant caregivers
Preparation of discharge records, prescriptions, and referral forms
Total time spent (in minutes): 41
Anticipated Discharge: Today
Subjective/Interval History
-
Date of Service: February 03, 2024
denies any new complaints at present
Objective Data
-
Labs:
Laboratory Results
02/03/24 02/03/24
03:44 03:48
WBC 7.1
Hgb 13.2
Hct 37.7
Plt Count 237
Sodium 142
Potassium 4.2
Chloride 103
Carbon Dioxide 28
BUN 14
Creatinine 0.5 L
Glucose 101 H
Calcium 10.0
Vital Signs:
Vital Signs
Temp Pulse Resp BP Pulse Ox
98.0 F 52 16 142/69 97
02/03/24 06:51 02/03/24 09:00 02/03/24 06:51 02/03/24 06:52 02/03/24 07:59
I&O
02/02/24 02/03/24 02/04/24
06:59 06:59 06:59
Intake Total 960 / 960
Balance 960 / 960
Physical Exam
-
General: No Apparent Distress
HEENT: Normocephalic and Atraumatic
Respiratory: Negative Wheezes
Cardiac: Regular Rhythm and S1/S2
GI: Soft
Genito-urinary: No Costovertebral Tender
Neuro: AO x 3
Hematologic / Lymphatic: No Lymphadenopathy
Psych: Calm
Data Reviewed
-
Total Time Spent with Patient (in minutes): 42
Labs: Labs Reviewed by me
--- NOTE | 2024-02-03 11:46 | W.DS.TRANS ---
DC Summary - Associate Manager
-
Discharge Instructions:
Sleep Apnea Risk Intermediate
Discharge Diagnosis/Procedures new AFib - converted to normal rhythm, chest
pain
Diet Low Cholesterol,2 Gram Sodium
Activity As tolerated
Other Services VN
Instructions:
Stand-Alone Forms:
Changes to Home Medications: Yes
Discharge Medications:
DC Medications w/original date entered in [employer]
acetaminophen 500 mg tablet (Tylenol Extra Strength) 500 mg PO Q6HPRN PRN mild pain 02/01/24
atorvastatin 80 mg tablet 80 mg PO HS 02/01/24
biotin 5 mg tablet 5 mg PO DAILY 02/01/24
cyanocobalamin (vitamin B-12) 1,000 mcg tablet 1,000 mcg PO DAILY 02/01/24
fluoxetine 20 mg capsule 20 mg PO DAILY 02/01/24
hydrochlorothiazide 12.5 mg capsule 12.5 mg PO DAILY 02/01/24
losartan 50 mg tablet 50 mg PO DAILY 02/01/24
txkofbcr-czqh-gqiy 8 mg-folic 400 mcg-K 50 mcg-lutein 300 mcg tablet (Centrum Silver Women) 1 tab PO DAILY 02/01/24
multivitamin with minerals (Hair,Skin and Nails tablet) 1 tab PO DAILY 02/01/24
potassium chloride 10 mEq tablet,extended release 10 meq PO BID 02/01/24
apixaban 5 mg tablet (Eliquis) 5 mg PO BID #30 tabs 02/02/24
amlodipine 10 mg tablet 10 mg PO DAILY #30 tabs 02/03/24
metoprolol succinate 25 mg tablet,extended release 24 hr 25 mg PO DAILY #30 tabs 02/03/24
Home Medication Changes
aspirin stopped
Pending Results: No
Total time spent discharging patient (in min): 41
[2024-02-03 12:31] VITALS: BP 101/86
== END 2024-02-03 15:00 | disposition home health service (06) | DRG 309 ==
LOC: IVU 11:45
PROVIDERS: Physician Assistant Medical; Student in an Organized Health Care Education/Training Program; ADMITTING PHYSICIAN Internal Medicine; ATTENDING PHYSICIAN Internal Medicine; CONSULT PHYSICIAN Internal Medicine Cardiovascular Disease; EMERGENCY PHYSICIAN Student in an Organized Health Care Education/Training Program; FAMILY PHYSICIAN Internal Medicine
DX: I48.0 Paroxysmal atrial fibrillation (principal); I5A Non-ischemic myocardial injury (non-traumatic); R00.2 Palpitations; I10 Essential (primary) hypertension; E78.00 Pure hypercholesterolemia, unspecified; R51.9 Headache, unspecified; I70.0 Atherosclerosis of aorta; I34.0 Nonrheumatic mitral (valve) insufficiency; R00.0 Tachycardia, unspecified; Z85.118 Personal history of other malignant neoplasm of bronchus and lung; Z88.6 Allergy status to analgesic agent; Z79.82 Long term (current) use of aspirin; Z87.891 Personal history of nicotine dependence; Z90.710 Acquired absence of both cervix and uterus; Z90.2 Acquired absence of lung [part of]; Z82.49 Family history of ischemic heart disease and other diseases of the circulatory system
CPT/HCPCS: 80048; 80061; 83036; 83735; 84443; 84484; 85025; 85027; 85610; 92960; 93005; 93306; 96361; 96374; 99152; 99285

== ENCOUNTER → 2024-03-14 07:59 | Outpatient (REF) | payer MEDICARE, OTHER, SELFPAY | LOC: DHCBC/DCA 07:59 | PROVIDERS: ATTENDING PHYSICIAN Physician Assistant Medical; FAMILY PHYSICIAN Internal Medicine | DX: R74.8 Abnormal levels of other serum enzymes (principal); R07.9 Chest pain, unspecified; R06.09 Other forms of dyspnea | CPT/HCPCS: 78452; 93017; A9500; J2785 ==